=== PATIENT | male | born 1950 | race Caucasian/White ===

== ENCOUNTER 2018-01-10 04:45 | Inpatient (IN) | payer MEDICARE ==
[2018-01-10] VITALS (10 sets, daily range): BP systolic 124–162; BP diastolic 67–93; PULSE 87–122; RESP 17–24; TEMP 98.1–98.7; O2SAT 93–98
[~2018-01-10] VITALS: Ht 172.7 cm; Wt 120.8 kg
[2018-01-10] MEDS ORDERED: LISI2.5T3 PO (05:10)
[2018-01-10] MEDS ORDERED: HYDR5SYP10 PO (05:10)
[2018-01-10] MEDS ORDERED: CLAR10CA3 PO (05:10)
[2018-01-10] MEDS ORDERED: GUAI1TAB18 (05:10)
[2018-01-10] MEDS ORDERED: SODIUM CHLOR 0.9% 1000 ML INJ 1,000 ML IV ONE (05:15)
[2018-01-10] MEDS ORDERED: ACETAMINOPHEN 325 MG TAB PO ONE (05:15)
--- NOTE | 2018-01-10 05:18 | PD ---
HPI Chief Complaint: Fever Time Seen by Provider: 05:00 Travel History International Travel<30 days: No Contact w/Intl Traveler<30days: No Traveled to known affect area: No History of Present Illness HPI The patient is a 67-year-old male who presents to the emergency department via private vehicle for cough and cold symptoms that started on Tuesday. The patient developed a mostly dry nonproductive cough on Tuesday with subjective fevers and congestion. The patient was then seen in urgent care on Tuesday and placed on Levaquin. The patient has taken 2 doses of Levaquin, however, his symptoms have persisted. The patient states he checked his temperature earlier tonight and was 100.0, he was concerned about possible sepsis. The patient does have a history of sepsis 3 years ago in [place], [place]. The patient states that the cough is dry and nonproductive, does complain of right-sided chest wall pain secondary to coughing, denies significant shortness of breath. He denies any nausea, vomiting, diarrhea, or abdominal pain. He does complain of diffuse body aches. The patient states there is no x-ray performed and no influenza screen performed on Tuesday at the urgent care. Symptoms are moderate. Not alleviated with Levaquin. PFSH Past Medical History Arthritis: Yes Cardiac Catheterization: Yes Glaucoma: Yes Past Surgical History Abdominal Surgery: Yes Cholecystectomy: Yes Tonsillectomy: Yes (ADENOIDS ) Social History Alcohol Use: No Tobacco Use: No Substance Use: No Allergies-Medications (Allergen,Severity, Reaction): Coded Allergies: No Known Allergies (Unverified , 01/10/18) Reported Meds & Prescriptions Reported Meds & Active Scripts Active Reported Latanoprost Opth Drops (Latanoprost) 0.005% Drops 1 Drop EACH EYE HS Refrigerate until opened. Hydrocodone-Homatropine Liq 5-1.5 Mg/5 Ml Syrp 5 Ml PO Q6H PRN Lisinopril 2.5 Mg Tab 2.5 Mg PO DAILY Claritin (Loratadine) 10 Mg Cap 10 Mg PO DAILY Mucinex (Guaifenesin) 1,200 Mg Tab.er.12h Review of Systems Except as stated in HPI: all other systems reviewed are Neg General / Constitutional: Positive: Fever, Chills HENT: Positive: Sore Throat, Congestion, No: Headaches Cardiovascular: Positive: Chest Pain or Discomfort (Right-sided chest wall pain secondary to coughing) Respiratory: Positive: Cough, No: Shortness of Breath Gastrointestinal: No: Nausea, Vomiting, Diarrhea, Abdominal Pain Genitourinary: No: Dysuria Musculoskeletal: Positive: Myalgias Physical Exam Narrative GENERAL: Awake, alert, pleasant 67-year-old male who appears his stated age and is in no acute respiratory distress. SKIN: Focused skin assessment warm/dry. HEAD: Atraumatic. Normocephalic. EYES: Pupils equal and round. No scleral icterus. No injection or drainage. ENT: No nasal bleeding or discharge. Mild erythema but no exudate.. NECK: Trachea midline. No JVD. CARDIOVASCULAR: Regular, tachycardic with a heart rate of 115. RESPIRATORY: No accessory muscle use. C few scattered rhonchi right base. GASTROINTESTINAL: Abdomen soft, obese, no rebound tenderness. Stria noted. MUSCULOSKELETAL: No obvious deformities. No clubbing. No cyanosis. No edema. NEUROLOGICAL: Awake and alert. No obvious cranial nerve deficits. Motor grossly within normal limits. Normal speech. PSYCHIATRIC: Appropriate mood and affect; insight and judgment normal. Data Data Last Documented VS Vital Signs Date Time Temp Pulse Resp B/P (MAP) Pulse Ox O2 Delivery O2 Flow Rate FiO2 01/10/18 05:26 94 Nasal Cannula 2.00 01/10/18 05:25 113 24 159/86 (110) 01/10/18 04:52 98.2 Orders Orders Sepsis Workup Initiated (01/10/18 ) Electrocardiogram (01/10/18 05:08) Complete Blood Count With Diff (01/10/18 05:08) Comprehensive Metabolic Panel (01/10/18 05:08) Lactic Acid Sepsis Protocol (01/10/18 05:08) Ckmb (Isoenzyme) Profile (01/10/18 05:08) Troponin I (01/10/18 05:08) Urinalysis - C+S If Indicated (01/10/18 05:08) Influenzae A/B Antigen (01/10/18 05:08) Blood Culture (01/10/18 05:08) Chest, Single Ap (01/10/18 05:08) Blood Glucose (01/10/18 05:08) Ecg Monitoring (01/10/18 05:08) Iv Access Insert/Monitor (01/10/18 05:08) Oximetry (01/10/18 05:08) Oxygen Administration (01/10/18 05:08) Acetaminophen (Tylenol) (01/10/18 05:15) Sodium Chlor 0.9% 1000 Ml Inj (Ns 1000 M (01/10/18 05:15) Levofloxacin 500 Mg Premix Inj (Levaquin (01/10/18 06:15) Admit Order (Ed Use Only) (01/10/18 06:17) Labs Laboratory Tests Test 01/10/18 05:15 01/10/18 06:15 White Blood Count 13.5 TH/MM3 Red Blood Count 4.48 MIL/MM3 Hemoglobin 14.6 GM/DL Hematocrit 41.3 % Mean Corpuscular Volume 92.1 FL Mean Corpuscular Hemoglobin 32.6 PG Mean Corpuscular Hemoglobin Concent 35.4 % Red Cell Distribution Width 13.0 % Platelet Count 317 TH/MM3 Mean Platelet Volume 8.0 FL Neutrophils (%) (Auto) 86.4 % Lymphocytes (%) (Auto) 5.4 % Monocytes (%) (Auto) 6.6 % Eosinophils (%) (Auto) 1.1 % Basophils (%) (Auto) 0.5 % Neutrophils # (Auto) 11.7 TH/MM3 Lymphocytes # (Auto) 0.7 TH/MM3 Monocytes # (Auto) 0.9 TH/MM3 Eosinophils # (Auto) 0.1 TH/MM3 Basophils # (Auto) 0.1 TH/MM3 CBC Comment DIFF FINAL Differential Comment Blood Urea Nitrogen 15 MG/DL Creatinine 0.93 MG/DL Random Glucose 166 MG/DL Total Protein 7.1 GM/DL Albumin 3.4 GM/DL Calcium Level 8.3 MG/DL Alkaline Phosphatase 177 U/L Aspartate Amino Transf (AST/SGOT) 314 U/L Alanine Aminotransferase (ALT/SGPT) 173 U/L Total Bilirubin 0.6 MG/DL Sodium Level 138 MEQ/L Potassium Level 3.5 MEQ/L Chloride Level 106 MEQ/L Carbon Dioxide Level 21.7 MEQ/L Anion Gap 10 MEQ/L Estimat Glomerular Filtration Rate 82 ML/MIN Lactic Acid Level 2.2 mmol/L Total Creatine Kinase 67 U/L Troponin I 0.02 NG/ML Urine Color YELLOW Urine Turbidity CLEAR Urine pH 6.0 Urine Specific [place] 1.028 Urine Protein 30 mg/dL Urine Glucose (UA) NEG mg/dL Urine Ketones NEG mg/dL Urine Occult Blood NEG Urine Nitrite NEG Urine Bilirubin NEG Urine Urobilinogen LESS THAN 2.0 MG/DL Urine Leukocyte Esterase NEG Urine RBC LESS THAN 1 /hpf Urine WBC 1 /hpf Urine Mucus FEW /lpf Microscopic Urinalysis Comment CATH-CULT NOT IND MDM Medical Decision Making Medical Screen Exam Complete: Yes Emergency Medical Condition: Yes Medical Record Reviewed: Yes Interpretation(s) EKG reveals sinus tachycardia with a heart rate of 112. Date/Time Source Procedure Growth Status 01/10/18 05:15 Blood Peripheral Aerobic Blood Culture Pending Received 01/10/18 05:15 Blood Peripheral Anaerobic Blood Culture Pending Received 01/10/18 05:15 Blood Peripheral Aerobic Blood Culture Pending Received 01/10/18 05:15 Blood Peripheral Anaerobic Blood Culture Pending Received 01/10/18 05:15 Nasal Aspirate Influenza Types A,B Antigen (QUAN) - Final NEGATIVE FOR FLU A AND B ANTIGEN.... Complete Chest x-ray reveals bibasilar densities likely atelectasis. Differential Diagnosis Differential diagnosis includes sepsis, pneumonia, bronchitis, influenza, viral syndrome, UTI. Narrative Course IV was established, labs are drawn and sent, and the patient was placed on cardiac telemetry monitoring and continuous pulse oximetry monitoring. Chest x- ray was obtained. Blood culture and lactic acid were sent to lab. UA was sent to lab. The patient received 1 L of IV fluids and Tylenol 650 mg orally. Influenza screen was negative. Chest x-ray reveals bibasilar atelectasis. White count is elevated, heart rate is elevated, patient required oxygen to get an O2 sat greater than 93%. The patient may have viral syndrome or pneumonia not visualized on x-ray. He has been taking Levaquin for several days with no improvement of his symptoms. The patient does have a history of sepsis requiring prolonged hospitalization in the past, therefore, I believe it is reasonable to make the patient a 23 hour observation until blood cultures are negative and symptoms improved. The patient does not have a local primary physician, therefore, the on-call medical service was paged for 23 hour observation. Sepsis Criteria SIRS Criteria (2 or more): Heart rate over 90, RR > 20 or PaCO2 < 32, WBC > 28395, < 4000 or > 10% bands Criteria Outcome: Meets SIRS criteria Physician Communication Physician Communication [facility] were paged for 23 hour observation. I discussed the patient with Dr. Villalba who agrees with admission. Diagnosis Primary Impression: Febrile illness Additional Impressions: SIRS (systemic inflammatory response syndrome) Lactic acidosis Admitting Information Admitting Physician Requests: Observation Condition: Stable Nicanor Henson MD Jan 10, 2018 05:18
[2018-01-10 05:32] LABS: AUTOMATED NEUTROPHIL # 11.7 TH/MM3 (1.8-7.7); BASOPHIL # 0.1 TH/MM3 (0-0.2); BASOPHIL % 0.5 % (0.0-2.0); EOSINOPHIL # 0.1 TH/MM3 (0-0.4); EOSINOPHIL % 1.1 % (0.0-4.0); HEMATOCRIT 41.3 % (39.0-51.0); HEMOGLOBIN 14.6 GM/DL (13.0-17.0); LYMPH % 5.4 % (9.0-44.0); LYMPHOCYTE # 0.7 TH/MM3 (1.0-4.8); MEAN CELL VOLUME 92.1 FL (80.0-100.0); MEAN CORPUSCULAR HEMOGLOBIN 32.6 PG (27.0-34.0); MEAN CORPUSCULAR HGB CONC 35.4 % (32.0-36.0); MONO % 6.6 % (0.0-8.0); MONOCYTE # 0.9 TH/MM3 (0-0.9); NEUT % 86.4 % (16.0-70.0); PLATELET COUNT 317 TH/MM3 (150-450); RED BLOOD COUNT 4.48 MIL/MM3 (4.50-5.90); WHITE BLOOD COUNT 13.5 TH/MM3 (4.0-11.0)
[2018-01-10] MEDS ORDERED: LATA0.002 EACH EYE (05:35)
[2018-01-10 05:59] LABS: ALBUMIN 3.4 GM/DL (3.4-5.0); ALT (GPT) 173 U/L (12-78); AST (GOT) 314 U/L (15-37); BICARBONATE 21.7 MEQ/L (21.0-32.0); BLOOD UREA NITROGEN 15 MG/DL (7-18); CALCIUM 8.3 MG/DL (8.5-10.1); CHLORIDE 106 MEQ/L (98-107); CREATININE 0.93 MG/DL (0.60-1.30); GLOMERULAR FILTRATION RATE 82 ML/MIN (>89); GLUCOSE,RANDOM 166 MG/DL (74-106); SODIUM (NA) 138 MEQ/L (136-145)
[2018-01-10 06:03] LABS: ALKALINE PHOSPHATASE 177 U/L (45-117); TOTAL BILIRUBIN ADULT 0.6 MG/DL (0.2-1.0); TOTAL PROTEIN 7.1 GM/DL (6.4-8.2); TROPONIN I 0.02 NG/ML (0.02-0.05)
--- NOTE | 2018-01-10 06:03 | RADRPT ---
EXAM DATE/TIME: 01/10/2018 05:24 [facility] COMPARISON: No previous studies available for comparison. INDICATIONS : Short of breath. MEDICAL HISTORY : None. SURGICAL HISTORY : None. ENCOUNTER: Initial ACUITY: 1 day PAIN SCORE: 0/10 LOCATION: Bilateral chest FINDINGS: A single view of the chest demonstrates bibasilar densities. Slight elevation right hemidiaphragm. He art normal in size. Osseous structures are intact. CONCLUSION: Bibasilar densities likely atelectasis. Trent Houser MD on January 10, 2018 at 6:00 Board Certified Radiologist. This report was verified electronically.
[2018-01-10 06:08] LABS: LACTIC ACID SEPSIS PROTOCOL 2.2 mmol/L (0.4-2.0)
[2018-01-10] MEDS ORDERED: LEVOFLOXACIN 500 MG PREMIX INJ 100 ML IV ONE (06:15)
[2018-01-10] MEDS: SODIUM CHLOR 0.9% 1000 ML INJ 1,000 ML IV SCH ×3 (06:16→22:23)
[2018-01-10] MEDS ORDERED: BISACODYL 10 MG SUPP RECTAL PRN (06:30)
[2018-01-10] MEDS ORDERED: NALOXONE HCL 0.4 MG/ML AMP IV PUSH PRN (06:30)
[2018-01-10] MEDS ORDERED: SENNOSIDES 8.6 MG TAB PO PRN (06:30)
[2018-01-10] MEDS ORDERED: SODIUM CHLORIDE 0.9% FLUSH 10 ML FLUSH IV FLUSH PRN (06:30)
[2018-01-10] MEDS ORDERED: ACETAMINOPHEN 325 MG TAB PO PRN (06:30)
[2018-01-10] MEDS: HEPARIN SODIUM - SQ 10,000 UNITS/ML VIAL SQ SCH ×3 (06:30→20:03)
[2018-01-10] MEDS ORDERED: LACTULOSE SYRUP 20 GM/30 ML CUP PO PRN (06:30)
[2018-01-10] MEDS ORDERED: MAGNESIUM HYDROXIDE SUSP 30 ML CUP PO PRN (06:30)
[2018-01-10] MEDS ORDERED: ONDANSETRON HCL 4 MG/2 ML VIAL IVP PRN (06:30)
[2018-01-10 06:43] LABS: BILIRUBIN, URINE NEG (NEG); BLOOD, URINE NEG (NEG); GLUCOSE,URINE NEG (NEG); KETONE, URINE NEG (NEG); MUCUS URINE FEW /lpf (OCC); NITRITE,URINE NEG (NEG); URINE COLOR YELLOW (YELLW/STRAW); URINE LEUKOCYTE ESTERASE NEG (NEG)
[2018-01-10] MEDS ORDERED: PILL SPLITTER OTHER PRN (06:45)
[2018-01-10] MEDS: LISINOPRIL 5 MG TAB PO SCH (09:32)
[2018-01-10] MEDS: DOCUSATE SODIUM 50 MG/SENNA 8.6 MG TAB PO SCH ×2 (09:39→20:03)
[2018-01-10] MEDS: SODIUM CHLORIDE 0.9% FLUSH 10 ML FLUSH IV FLUSH SCH ×2 (09:40→20:03)
--- NOTE | 2018-01-10 10:18 | RADRPT ---
EXAM DATE/TIME: 01/10/2018 09:31 [facility] COMPARISON: No previous studies available for comparison. INDICATIONS : Increased lab values. Elevated LFTs. MEDICAL HISTORY : Arthritis. Glaucoma. SURGICAL HISTORY : Tonsillectomy. Cholecystectomy. Cardiac Cath. Adenoidectomy. ENCOUNTER: Initial ACUITY: 1 day PAIN SCORE: 1/10 LOCATION: Right upper quadrant Abdomen. MEASUREMENTS: LIVER: 20.0 cm length COMMON DUCT: Non-visualized RIGHT KIDNEY: 11.5 x 5.5 x 5.0 cm SPLEEN: 12.4 cm length FINDINGS: LIVER: Mildly heterogeneous increased echogenicity which may be steatosis. COMMON DUCT: Not seen GALLBLADDER: Surgically absent PANCREAS: Nonvisualized RIGHT KIDNEY: Areas of cortical thinning and loss involving mid and lower pole region. This may be developmental or related to prior insults of some kind. No evidence of hydronephrosis. SPLEEN: No focal lesion. CONCLUSION: Heterogeneous mild probable hepatic steatosis. Santy Baer MD on January 10, 2018 at 10:12 Board Certified Radiologist. This report was verified electronically.
--- NOTE | 2018-01-10 14:37 | EKG ---
Date Performed: 01/10/2018 Time Performed: 05:09:15 PTAGE: 67 years EKG: SINUS TACHYCARDIA VOLTAGE CRITERIA FOR LVH ABNORMAL ECG NO PREVIOUS TRACING DOCTOR: Homar Zurita Interpretating Date/Time 01/10/2018 14:33:55
--- NOTE | 2018-01-10 16:11 | HHI.HP ---
HPI Service [facility] Hospitalists Primary Care Physician Non-Staff Admission Diagnosis Febrile illness, sirs, lactic acidosis, probable pneumonia Diagnoses: Chief Complaint: Cough with sputum production Fatigue RUQ pain Travel History International Travel<30 Days: No Contact w/Intl Traveler <30 Da: No Traveled to Known Affected Are: No Sepsis Criteria SIRS Criteria (2 or more): Heart rate over 90, RR > 20 or PaCO2 < 32, WBC > 69509, < 4000 or > 10% bands Sepsis Criteria (SIRS+source): Infect source susp/known Severe Sepsis (+one): Organ Dysfunction, Lactate >2 Criteria Outcome: Meets severe sepsis criteria History of Present Illness Written by Marge Klein, acting as scribe for Dr. Medrano on 01/10/18 at 15: 52. This is a 67-year-old male with past medical history significant for hypertension, bariatric surgery, glaucoma and history of septic shock secondary to pneumonia that occurred 2 years ago who presents to [facility] ED with complaints cough with yellowish/greenish sputum production, diffuse muscle aches and pain, low grade fever, increased fatigue and right upper quadrant pain ongoing since Tuesday. Patient states his temperature at the house was 99 . Patient states he recently moved to the area from [place] and has been doing a lot of heavy lifting, moving and packing boxes. He states on Tuesday when he began to develop symptoms he started taking Mucinex. He describes a sensation of "lungs closing up". He continued to feel badly and on Tuesday he contacted his previous physician in [place] and was called in Levaquin of which he has taken 2 days of. He also went to see an urgent care on Tuesday which prescribed Levaquin which he did not fill. He denies any complaints of chest pain. He denies any nausea or vomiting. He does endorse significant right upper quadrant pain that has been ongoing since Tuesday and he states is exacerbated by cough. He denies any complaints of dysuria, hematuria , diarrhea, hematochezia or melena. He takes Motrin for osteoarthritic pain but denies taking any Tylenol. Patient states he has been off and on antibiotics every few weeks for the past several years. He states he has been told that he might have asthma. Review of Systems Except as stated in HPI: all other systems reviewed are Neg Past Family Social History Past Medical History Hypertension Glaucoma Hx of septic shock with PNA 2 yrs ago Past Surgical History Cholecystectomy Gastric bypass surgery with gastric sleeve surgery prior to that Tonsillectomy Reported Medications Latanoprost Opth Drops (Latanoprost) 0.005% Drops 1 Drop EACH EYE HS Refrigerate until opened. Hydrocodone-Homatropine Liq 5-1.5 Mg/5 Ml Syrp 5 Ml PO Q6H PRN Lisinopril 2.5 Mg Tab 2.5 Mg PO DAILY Claritin (Loratadine) 10 Mg Cap 10 Mg PO DAILY Mucinex (Guaifenesin) 1,200 Mg Tab.er.12h Allergies: Coded Allergies: No Known Allergies (Unverified , 01/10/18) Active Ordered Medications Current Medications Medications (Trade) Dose Ordered Sig/Parker Route Start Time Stop Time Status Last Admin Sodium Chloride 1,000 ml @ 125 mls/hr Q8H IV 01/10/18 06:16 01/10/18 14:11 (NS Flush) 2 ml UNSCH PRN IV FLUSH 01/10/18 06:30 (NS Flush) 2 ml BID IV FLUSH 01/10/18 09:00 01/10/18 09:40 (Tylenol) 650 mg Q4H PRN PO 01/10/18 06:30 (Zofran Inj) 4 mg Q6H PRN IVP 01/10/18 06:30 (Heparin Inj) 5,000 units Q8HR SQ 01/10/18 06:30 01/10/18 14:07 (Narcan Inj) 0.4 mg UNSCH PRN IV PUSH 01/10/18 06:30 (Ann-Colace) 1 tab BID PO 01/10/18 09:00 01/10/18 09:39 (Milk Of Magnesia Liq) 30 ml Q12H PRN PO 01/10/18 06:30 (Senokot) 17.2 mg Q12H PRN PO 01/10/18 06:30 (Dulcolax Supp) 10 mg DAILY PRN RECTAL 01/10/18 06:30 (Lactulose Liq) 30 ml DAILY PRN PO 01/10/18 06:30 (Duoneb Neb) 1 ampule Q4HR NEB PRN NEB 01/10/18 06:30 Levofloxacin/ Dextrose 100 ml @ 100 mls/hr Q24H IV 01/11/18 06:00 (Xalatan 0.005% Opth Soln) 1 drop HS EACH EYE 01/10/18 21:00 (Prinivil) 2.5 mg DAILY PO 01/10/18 09:00 01/10/18 09:32 (Pill Splitter) 1 ea UNSCH PRN OTHER 01/10/18 06:45 Family History Father, age 70, vascular disease Mother, , cancer Social History Patient denies any tobacco use. He reports rare alcohol consumption but does state that he drank more than he normally does during bike week which consisted of 2 beers a day over the course of 3 days. He denies any illicit drug use. Physical Exam Vital Signs Vital Signs Date Time Temp Pulse Resp B/P (MAP) Pulse Ox O2 Delivery O2 Flow Rate FiO2 01/10/18 14:00 98.1 87 19 134/70 (91) 98 01/10/18 13:06 87 17 132/72 (92) 95 Room Air 01/10/18 10:38 100 18 124/74 (91) 93 Room Air 01/10/18 07:13 94 17 132/67 (88) 94 Nasal Cannula 2.00 01/10/18 06:49 98.7 89 24 132/67 (88) 94 Nasal Cannula 2.00 01/10/18 06:24 95 Nasal Cannula 2.00 01/10/18 05:26 94 Nasal Cannula 2.00 01/10/18 05:25 113 24 159/86 (110) 93 Nasal Cannula 2.00 01/10/18 04:52 98.2 122 22 162/93 (116) 94 Physical Exam GENERAL: This is a well-nourished, well-developed obese male patient, in no apparent distress. Awake and alert. SKIN: No rashes, ecchymoses or lesions. Cool and dry. HEAD: Atraumatic. Normocephalic. No temporal or scalp tenderness. EYES: Pupils equal round and reactive. Extraocular motions intact. No scleral icterus. No injection or drainage. ENT: Nose without bleeding or purulent drainage. Throat without erythema, tonsillar hypertrophy or exudate. Uvula midline. Airway patent. NECK: Trachea midline. No lymphadenopathy. Supple, nontender, no meningeal signs. CARDIOVASCULAR: Regular rate and rhythm without murmurs, gallops, or rubs. RESPIRATORY: Clear to auscultation. Breath sounds equal bilaterally. No wheezes , rales, or rhonchi. GASTROINTESTINAL: Abdomen soft, non-tender, nondistended. No hepato-splenomegaly , or palpable masses. No guarding. MUSCULOSKELETAL: Extremities without clubbing, cyanosis, or edema. No joint tenderness, effusion, or edema noted. No calf tenderness. NEUROLOGICAL: Awake and alert. Cranial nerves II through XII intact. Motor and sensory grossly within normal limits. Five out of 5 muscle strength in all muscle groups. Normal speech. Laboratory Laboratory Tests Test 01/10/18 05:15 01/10/18 06:15 01/10/18 10:10 01/10/18 10:14 White Blood Count 13.5 Red Blood Count 4.48 Hemoglobin 14.6 Hematocrit 41.3 Mean Corpuscular Volume 92.1 Mean Corpuscular Hemoglobin 32.6 Mean Corpuscular Hemoglobin Concent 35.4 Red Cell Distribution Width 13.0 Platelet Count 317 Mean Platelet Volume 8.0 Neutrophils (%) (Auto) 86.4 Lymphocytes (%) (Auto) 5.4 Monocytes (%) (Auto) 6.6 Eosinophils (%) (Auto) 1.1 Basophils (%) (Auto) 0.5 Neutrophils # (Auto) 11.7 Lymphocytes # (Auto) 0.7 Monocytes # (Auto) 0.9 Eosinophils # (Auto) 0.1 Basophils # (Auto) 0.1 CBC Comment DIFF FINAL Differential Comment Blood Urea Nitrogen 15 Creatinine 0.93 Random Glucose 166 Total Protein 7.1 Albumin 3.4 Calcium Level 8.3 Alkaline Phosphatase 177 Aspartate Amino Transf (AST/SGOT) 314 Alanine Aminotransferase (ALT/SGPT) 173 Total Bilirubin 0.6 Sodium Level 138 Potassium Level 3.5 Chloride Level 106 Carbon Dioxide Level 21.7 Anion Gap 10 Estimat Glomerular Filtration Rate 82 Lactic Acid Level 2.2 1.7 Total Creatine Kinase 67 Troponin I 0.02 Urine Color YELLOW Urine Turbidity CLEAR Urine pH 6.0 Urine Specific [place] 1.028 Urine Protein 30 Urine Glucose (UA) NEG Urine Ketones NEG Urine Occult Blood NEG Urine Nitrite NEG Urine Bilirubin NEG Urine Urobilinogen LESS THAN 2.0 Urine Leukocyte Esterase NEG Urine RBC LESS THAN 1 Urine WBC 1 Urine Mucus FEW Microscopic Urinalysis Comment CATH-CULT NOT IND Hepatitis A IgM Antibody NONREACTIVE Hepatitis B Surface Antigen NONREACTIVE Hepatitis B Core IgM Antibody NONREACTIVE Hepatitis C IgG Antibody NONREACTIVE Date/Time Source Procedure Growth Status 01/10/18 05:15 Blood Peripheral Aerobic Blood Culture Pending Received 01/10/18 05:15 Blood Peripheral Anaerobic Blood Culture Pending Received 01/10/18 05:15 Nasal Aspirate Influenza Types A,B Antigen (QUAN) - Final NEGATIVE FOR FLU A AND B ANTIGEN.... Complete Result Diagram: 01/10/18 0515 01/10/18 0515 Imaging Last Impressions Chest X-Ray 01/10/18 0508 Signed Impressions: Service Date/Time: Wednesday, January 10, 2018 05:24 - CONCLUSION: Bibasilar densities likely atelectasis. Trent Houser MD Liver Ultrasound 01/10/18 0000 Signed Impressions: Service Date/Time: Wednesday, January 10, 2018 09:31 - CONCLUSION: Heterogeneous mild probable hepatic steatosis. Santy Baer MD [place] VTE Risk Assessment Caprini VTE Risk Assessment: Mod/High Risk (score >= 2) Caprini Risk Assessment Model Point Value = 1 Point Value = 2 Point Value = 3 Point Value = 5 Age 41-60 Minor surgery BMI > 25 kg/m2 Swollen legs Varicose veins or History of unexplained or recurrent spontaneous Oral contraceptives or hormone replacement Sepsis (< 1 month) Serious lung disease, including pneumonia (< 1 month) Abnormal pulmonary function Acute myocardial infarction Congestive heart failure (< 1 month) History of inflammatory bowel disease Medical patient at bed rest Age 61-74 Arthroscopic surgery Major open surgery (> 45 min) Laparoscopic surgery (> 45 min) Malignancy Confined to bed (> 72 hours) Immobilizing plaster cast Central venous access Age >= 75 History of VTE Family history of VTE Factor V Leiden Prothrombin [id number] Lupus anticoagulant Anticardiolipin antibodies Elevated serum homocysteine Heparin-induced thrombocytopenia Other congenital or acquired thrombophilia Stroke (< 1 month) Elective arthroplasty Hip, pelvis, or leg fracture Acute spinal cord injury (< 1 month) Prophylaxis Regimen Total Risk Factor Score Risk Level Prophylaxis Regimen 0-1 Low Early ambulation 2 Moderate Order ONE of the following: *Sequential Compression Device (SCD) *Heparin 5000 units SQ BID 3-4 Higher Order ONE of the following medications: *Heparin 5000 units SQ TID *Enoxaparin/Lovenox 40 mg SQ daily (WT < 150 kg, CrCl > 30 mL/min) *Enoxaparin/Lovenox 30 mg SQ daily (WT < 150 kg, CrCl > 10-29 mL/min) *Enoxaparin/Lovenox 30 mg SQ BID (WT < 150 kg, CrCl > 30 mL/min) AND/OR *Sequential Compression Device (SCD) 5 or more Highest Order ONE of the following medications: *Heparin 5000 units SQ TID (Preferred with Epidurals) *Enoxaparin/Lovenox 40 mg SQ daily (WT < 150 kg, CrCl > 30 mL/min) *Enoxaparin/Lovenox 30 mg SQ daily (WT < 150 kg, CrCl > 10-29 mL/min) *Enoxaparin/Lovenox 30 mg SQ BID (WT < 150 kg, CrCl > 30 mL/min) AND *Sequential Compression Device (SCD) Assessment and Plan Assessment and Plan 67-year-old male with past medical history significant for hypertension, bariatric surgery, glaucoma and history of septic shock secondary to pneumonia that occurred 2 years ago who presents to [facility] ED with complaints cough with yellowish/greenish sputum production, diffuse muscle aches and pain, low grade fever, increased fatigue and right upper quadrant pain ongoing since Tuesday. //Patient meets severe sepsis criteria with elevated white count of 13.5, HR 100 , RR 94, lactic acid 2.2 and source of pneumonia -IV Levaquin -CXR shows bibasilar densities, images reviewed by me -UA unremarkable -negative for flu antigen -repeat lactic acid -follow up on blood culture results -monitor white count -continuous cardiac monitoring -supplemental oxygen as needed to maintain O2 sats>92% -Duonebs -Mucinex -IS and acapella //Transaminitis //Right upper quadrant pain -obtain liver US -obtain hepatitis profile -Consult GI, appreciate assistance -Avoid hepatotoxic agents -Trend LFTs //Hypertension, chronic, controlled -Resume patient on home dose of lisinopril 2.5 mg daily -Continue to monitor BP and adjust treatment accordingly //Glaucoma -Resume home eyedrops //Hyperglycemia -No reported history of diabetes per patient -BS 166 -obtain [id number] //Hx of bariatric surgery -continue on Thiamine //DVT prophylaxis -bilateral SCD/DORITA hose Discussed Condition With patient, nursing staff Physician Certification 2 Midnight Certification Type: Admission for Inpatient Services Order for Inpatient Services The services are ordered in accordance with Medicare regulations or non- Medicare payer requirements, as applicable. In the case of services not specified as inpatient-only, they are appropriately provided as inpatient services in accordance with the 2-midnight benchmark. Estimated LOS (days): 2 2 days is the estimated time the patient will need to remain in the hospital, assuming treatment plan goals are met and no additional complications. Post-Hospital Plan: Not yet determined Notes: This note was transcribed by stephan Klein. I, Dr. Wolf Medrano personally performed the history, physical exam, and medical decision making; and confirmed the accuracy of the information in the transcribed note. Authenticated by Dr. Wolf Medrano on 01/12/18 at 07:44. Marge Klein Jan 10, 2018 16:11 Wolf Medrano MD Jan 12, 2018 07:44
--- NOTE | 2018-01-10 17:21 | PD.CONS ---
HPI History of Present Illness This is a 67 year old with PMH significant for HTN, gastric bypass, and glaucoma who denies any other significant medical problems. States had recent labs done by his PCP in [facility] and was told everything came back normal including negative for diabetes and hyperlipidemia. Pt does reports multiple respiratory illnesses, states he gets sick every couple weeks and ends up on antibiotics. Pt recently seen at an urgent care and started on Levaquin and Codeine cough syrup. Pt presented to the ER yesterday with complaints of persistent productive cough, muscle aches, fatigue, and low grade fevers. Pt also complaining of RUQ pain, states he had this same pain a month ago when he was coughing, pain was worse with coughing and movement but resolved on its own. He currently describes the pain the same way and states it feels like he has a pulled muscle. Denies any associated acid reflux, heartburn, nausea, vomiting, changes in bowel movement, weight loss. Denies history of liver issues. States he does not really drink alcohol but did have 3-4 beers a day for four days in a row during bike week. Has been taking OTC Mucinex, states a lot of it for his cough. Also was taking Claritin but stopped this last week. Denies Tylenol use, smoking, illicit drug use. Denies history of IV drug use. Last EGD was around 20 years ago and he states normal exam. Last colonoscopy in November showed 1 polyp, history of precancerous polyps. (Erinn Birmingham) PFSH Past Medical History Hypertension Glaucoma Hx of septic shock with PNA 2 yrs ago Past Surgical History Cholecystectomy Gastric bypass surgery with gastric sleeve surgery prior to that Tonsillectomy (Erinn Birmingham) Coded Allergies: No Known Allergies (Unverified , 01/10/18) Family History Father, age 70, vascular disease Mother, , cancer Social History Patient denies any tobacco use. He reports rare alcohol consumption but does state that he drank more than he normally does during bike week which consisted of 2 beers a day over the course of 3 days. He denies any illicit drug use. (Erinn Birmingham) Review of Systems Gastrointestinal: COMPLAINS OF: Abdominal pain, DENIES: Black stools, Bloody stools, Constipation, Diarrhea, Nausea, Vomiting, Difficulty Swallowing, Anorexia, Odynophagia, Swelling of Abdomen, Heartburn, Hematemesis (Erinn Birmingham GLACIOLOGIST) GI Exam Vitals I&O Vital Signs Date Time Temp Pulse Resp B/P (MAP) Pulse Ox O2 Delivery O2 Flow Rate FiO2 01/10/18 14:00 98.1 87 19 134/70 (91) 98 01/10/18 13:06 87 17 132/72 (92) 95 Room Air 01/10/18 10:38 100 18 124/74 (91) 93 Room Air 01/10/18 07:13 94 17 132/67 (88) 94 Nasal Cannula 2.00 01/10/18 06:49 98.7 89 24 132/67 (88) 94 Nasal Cannula 2.00 01/10/18 06:24 95 Nasal Cannula 2.00 01/10/18 05:26 94 Nasal Cannula 2.00 01/10/18 05:25 113 24 159/86 (110) 93 Nasal Cannula 2.00 01/10/18 04:52 98.2 122 22 162/93 (116) 94 I/O 01/09/18 01/09/18 01/09/18 01/10/18 01/10/18 01/10/18 07:00 15:00 23:00 07:00 15:00 23:00 Intake Total 1000 ml 100 ml Balance 1000 ml 100 ml Intake IV Total 1000 ml 100 ml Imaging Last Impressions Chest X-Ray 01/10/18 0508 Signed Impressions: Service Date/Time: Wednesday, January 10, 2018 05:24 - CONCLUSION: Bibasilar densities likely atelectasis. Trent Houser MD Liver Ultrasound 01/10/18 0000 Signed Impressions: Service Date/Time: Wednesday, January 10, 2018 09:31 - CONCLUSION: Heterogeneous mild probable hepatic steatosis. Santy Baer MD Laboratory Test 01/10/18 05:15 01/10/18 06:15 01/10/18 10:10 01/10/18 10:14 White Blood Count 13.5 TH/MM3 Red Blood Count 4.48 MIL/MM3 Hemoglobin 14.6 GM/DL Hematocrit 41.3 % Mean Corpuscular Volume 92.1 FL Mean Corpuscular Hemoglobin 32.6 PG Mean Corpuscular Hemoglobin Concent 35.4 % Red Cell Distribution Width 13.0 % Platelet Count 317 TH/MM3 Mean Platelet Volume 8.0 FL Neutrophils (%) (Auto) 86.4 % Lymphocytes (%) (Auto) 5.4 % Monocytes (%) (Auto) 6.6 % Eosinophils (%) (Auto) 1.1 % Basophils (%) (Auto) 0.5 % Neutrophils # (Auto) 11.7 TH/MM3 Lymphocytes # (Auto) 0.7 TH/MM3 Monocytes # (Auto) 0.9 TH/MM3 Eosinophils # (Auto) 0.1 TH/MM3 Basophils # (Auto) 0.1 TH/MM3 CBC Comment DIFF FINAL Differential Comment Blood Urea Nitrogen 15 MG/DL Creatinine 0.93 MG/DL Random Glucose 166 MG/DL Total Protein 7.1 GM/DL Albumin 3.4 GM/DL Calcium Level 8.3 MG/DL Alkaline Phosphatase 177 U/L Aspartate Amino Transf (AST/SGOT) 314 U/L Alanine Aminotransferase (ALT/SGPT) 173 U/L Total Bilirubin 0.6 MG/DL Sodium Level 138 MEQ/L Potassium Level 3.5 MEQ/L Chloride Level 106 MEQ/L Carbon Dioxide Level 21.7 MEQ/L Anion Gap 10 MEQ/L Estimat Glomerular Filtration Rate 82 ML/MIN Lactic Acid Level 2.2 mmol/L 1.7 mmol/L Total Creatine Kinase 67 U/L Troponin I 0.02 NG/ML Urine Color YELLOW Urine Turbidity CLEAR Urine pH 6.0 Urine Specific Marble 1.028 Urine Protein 30 mg/dL Urine Glucose (UA) NEG mg/dL Urine Ketones NEG mg/dL Urine Occult Blood NEG Urine Nitrite NEG Urine Bilirubin NEG Urine Urobilinogen LESS THAN 2.0 MG/DL Urine Leukocyte Esterase NEG Urine RBC LESS THAN 1 /hpf Urine WBC 1 /hpf Urine Mucus FEW /lpf Microscopic Urinalysis Comment CATH-CULT NOT IND Hepatitis A IgM Antibody NONREACTIVE Hepatitis B Surface Antigen NONREACTIVE Hepatitis B Core IgM Antibody NONREACTIVE Hepatitis C IgG Antibody NONREACTIVE Date/Time Source Procedure Growth Status 01/10/18 05:15 Blood Peripheral Aerobic Blood Culture Pending Received 01/10/18 05:15 Blood Peripheral Anaerobic Blood Culture Pending Received 01/10/18 05:15 Nasal Aspirate Influenza Types A,B Antigen (QUAN) - Final NEGATIVE FOR FLU A AND B ANTIGEN.... Complete Physical Examination HEENT: Normocephalic; atraumatic CHEST: Diffuse crackles CARDIAC: RRR ABDOMEN: Distended, soft, tender to deep palpation under right ribcage, bowel sounds active EXTREMITIES: No clubbing, cyanosis, or edema. SKIN: Normal; no rash; no jaundice. SUPERVISOR BEEHIVE KILN: No focal deficits; alert and oriented times three. (Erinn Birmingham) Assessment and Plan Plan Assessment: - Elevated LFTs- Currently AST-314 ALT-173 Alk phos-177 T bili-0.6 Pt denies history of liver issues. States recent labs by PCP were normal, denies hyperlipidemia and DM States rare ETOH but did have 3-4 beers a day for four days in a row during bike week. Denies history of IV drug use. New medications include: Hydrocodone-Homatropine, Levaquin OTC Mucinex. Denies any Tylenol use or OTC herbs and supplements. Liver US --> Heterogeneous mild probable hepatic steatosis Hepatitis panel negative Family history negative for liver issues Denies acid reflux, heartburn, dysphagia, odynophagia, weight loss. Complaining of RUQ abdominal pain, worse with coughing and movement, states feels like a pulled muscle. - History of gastric bypass with previous cholecystectomy done 5-6 years ago - Pneumonia- Levaquin - Leukocytosis, elevated lactic acid, hx of septic shock Plan: Unclear cause for elevated LFTs ?medication vs ?autoimmune (Pt states he is sick every few weeks requiring abx) Will order liver SHERMAN Monitor LFTs Avoid hepatotoxins Further recommendations based on findings of above Pt has been seen and examined by myself and Dr. Kimbrough and this note is written on his behalf (Erinn Birmingham) Physician Comments Patient seen and examined Agree with above Continue with current supportive care Monitor labs Most likely cause is related to antibiotic use and certainly Levaquin is the potential culprit Would recommend changing Levaquin we will defer to attending physician Liver workup in progress (Espinoza Kimbrough MD) Erinn Birmingham Jan 10, 2018 17:21 Espinoza Kimbrough MD Jan 10, 2018 21:49
[2018-01-10] MEDS: BENZONATATE 100 MG CAP PO PRN (20:02)
[2018-01-10] MEDS: FAMOTIDINE 20 MG TAB PO SCH (20:03)
[2018-01-10] MEDS: IBUPROFEN 600 MG TAB PO PRN (20:03)
[2018-01-10] MEDS: guaiFENesin E.R. 600 MG TAB PO SCH (20:03)
[2018-01-10] MEDS: LATANOPROST 0.005% OPHT SOLN 2.5 ML BTL EACH EYE SCH (22:22)
[2018-01-10] MEDS ORDERED: COMB0.2S LEFT EYE (22:33)
[2018-01-10] MEDS ORDERED: LATA0.002 RIGHT EYE (22:33)
[2018-01-10 22:41] LABS: % SATURATION IRON PROFILE 11.2 % (20-50); IRON (FE) 45 MCG/DL (65-175); TOTAL IRON BINDING CAPACITY 402 MCG/DL (250-450)
[2018-01-10 22:44] LABS: FERRITIN 264 NG/ML (26-388)
[2018-01-10] MEDS ORDERED: PROCHLORPERAZINE INJ 10 MG/2 ML VIAL IV PUSH PRN (23:15)
[2018-01-10] MEDS ORDERED: LORazepam 0.5 MG TAB PO PRN (23:15)
[2018-01-10] MEDS: cefTRIAXone INJ 1,000 MG in SODIUM CHLORIDE 0.9% INJ 100 ML IV SCH (23:57)
[2018-01-11] VITALS: BP 130/60; PULSE 92; RESP 18; TEMP 97.9; O2SAT 95
[2018-01-11] MEDS: AZITHROMYCIN INJ 500 MG in SODIUM CHLOR 0.9% 250 ML INJ 250 ML IV SCH ×2 (01:51→23:53)
[2018-01-11] MEDS ORDERED: LEVOFLOXACIN 500 MG PREMIX INJ 100 ML IV SCH (06:00)
[2018-01-11] MEDS: HEPARIN SODIUM - SQ 10,000 UNITS/ML VIAL SQ SCH ×3 (06:00→21:08)
[2018-01-11] MEDS: BENZONATATE 100 MG CAP PO PRN ×3 (06:24→21:00)
[2018-01-11] MEDS: IBUPROFEN 600 MG TAB PO PRN ×2 (06:24→17:13)
[2018-01-11 08:00] VITALS: BP 126/64; PULSE 87; RESP 18; TEMP 97.4; O2SAT 93; O2SAT 96
[2018-01-11] MEDS: guaiFENesin E.R. 600 MG TAB PO SCH ×2 (08:40→21:00)
[2018-01-11] MEDS: THIAMINE HCL 100 MG TAB PO SCH (08:40)
[2018-01-11] MEDS: FAMOTIDINE 20 MG TAB PO SCH ×2 (08:40→21:00)
[2018-01-11] MEDS: DOCUSATE SODIUM 50 MG/SENNA 8.6 MG TAB PO SCH ×2 (08:40→21:00)
[2018-01-11] MEDS: LORATADINE 10 MG TAB PO SCH (08:40)
[2018-01-11] MEDS: LISINOPRIL 5 MG TAB PO SCH (08:40)
[2018-01-11] MEDS: SODIUM CHLORIDE 0.9% FLUSH 10 ML FLUSH IV FLUSH SCH ×2 (08:42→21:07)
[2018-01-11 11:10] LABS: AUTOMATED NEUTROPHIL # 5.7 TH/MM3 (1.8-7.7); BASOPHIL % 0.6 % (0.0-2.0); EOSINOPHIL # 0.2 TH/MM3 (0-0.4); EOSINOPHIL % 2.2 % (0.0-4.0); HEMATOCRIT 39.4 % (39.0-51.0); HEMOGLOBIN 13.4 GM/DL (13.0-17.0); LYMPH % 13.2 % (9.0-44.0); MEAN CELL VOLUME 93.6 FL (80.0-100.0); MEAN CORPUSCULAR HEMOGLOBIN 31.8 PG (27.0-34.0); MEAN PLATELET VOLUME 8.1 FL (7.0-11.0); MONO % 9.4 % (0.0-8.0); MONOCYTE # 0.7 TH/MM3 (0-0.9); NEUT % 74.6 % (16.0-70.0); PLATELET COUNT 283 TH/MM3 (150-450); RED BLOOD COUNT 4.21 MIL/MM3 (4.50-5.90); RED CELL DISTRIBUTION WIDTH 13.3 % (11.6-17.2); WHITE BLOOD COUNT 7.7 TH/MM3 (4.0-11.0)
[2018-01-11 11:57] LABS: ALBUMIN 3.3 GM/DL (3.4-5.0); AST (GOT) 52 U/L (15-37); BICARBONATE 25.7 MEQ/L (21.0-32.0); BLOOD UREA NITROGEN 10 MG/DL (7-18); CALCIUM 8.3 MG/DL (8.5-10.1); CHLORIDE 110 MEQ/L (98-107); CREATININE 0.68 MG/DL (0.60-1.30); GLOMERULAR FILTRATION RATE 117 ML/MIN (>89); GLUCOSE,RANDOM 128 MG/DL (74-106); SODIUM (NA) 142 MEQ/L (136-145)
[2018-01-11 11:58] LABS: DIRECT BILIRUBIN ADULT 0.1 MG/DL (0.0-0.2)
[2018-01-11 12:00] VITALS: BP 123/60; PULSE 109; RESP 18; TEMP 97.5; O2SAT 92
[2018-01-11 12:01] LABS: ALKALINE PHOSPHATASE 138 U/L (45-117); ALT (GPT) 99 U/L (12-78); TOTAL BILIRUBIN ADULT 0.4 MG/DL (0.2-1.0); TOTAL PROTEIN 7.2 GM/DL (6.4-8.2)
--- NOTE | 2018-01-11 12:33 | HHI.PR ---
Subjective Remarks Nursing denies any deterioration since last night. However the patient did refuse his MRCP this morning. He says that he gets very short of breath and starts coughing a lot when he lies down flat. He thinks that it is better now and thinks he will be able to do this imaging test either later this evening or in the morning. He denies having any diagnosis of heart failure he was willing to undergo repeat echocardiogram. Denies any nausea vomiting this morning. Objective Vital Signs Date Time Temp Pulse Resp B/P (MAP) Pulse Ox O2 Delivery O2 Flow Rate FiO2 01/11/18 12:00 97.5 109 18 123/60 (81) 92 01/11/18 08:00 96 01/11/18 08:00 97.4 87 18 126/64 (84) 93 01/11/18 00:00 97.9 92 18 130/60 (83) 95 01/10/18 20:00 98.7 101 18 139/67 (91) 93 01/10/18 16:00 98.5 96 17 137/68 (91) 97 01/10/18 14:00 98.1 87 19 134/70 (91) 98 01/10/18 13:06 87 17 132/72 (92) 95 Room Air I/O 01/10/18 01/10/18 01/10/18 01/11/18 01/11/18 01/11/18 07:00 15:00 23:00 07:00 15:00 23:00 Intake Total 1000 ml 100 ml 1387 ml 975 ml Output Total 825 ml Balance 1000 ml 100 ml 562 ml 975 ml Intake Oral 600 ml 0 ml IV Total 1000 ml 100 ml 787 ml 975 ml Output Urine Total 825 ml # Voids 3 # Bowel Movements 0 0 Result Diagram: 01/11/18 1028 01/11/18 1028 Objective Remarks No abdominal tenderness palpation, abdomen is otherwise obese, soft, nondistended Lungs are clear bilaterally, no lower extremity edema is noted A/P Assessment and Plan 67-year-old male with past medical history significant for hypertension, bariatric surgery, glaucoma and history of septic shock secondary to pneumonia that occurred 2 years ago who presents to [facility] ED with complaints cough with yellowish/greenish sputum production, diffuse muscle aches and pain, low grade fever, increased fatigue and right upper quadrant pain ongoing since Tuesday. Sepsis secondary to pneumonia -Treat pneumonia, monitor IV fluids, leukocytosis resolved Pneumonia -Continue Rocephin and azithromycin as opposed to Levaquin to help minimize transaminitis as a possible side effect from the -Duonebs -Mucinex -IS and acapella orthopnea - ordering echo, possibly 2/2 PNA; no objective signs of any CHF evident //Transaminitis -continue IVF, improving per CMP this morning //Right upper quadrant pain -GI following, viral hepatitis panel is neg, autoimmune panel is still pending, can consider reattempting MRCP in next 12-24 hours. will order echo to elucidate orthopnea //Hypertension, chronic, controlled -lisinopril //Glaucoma -home eyedrops //Hyperglycemia -No reported history of diabetes per patient -BS 166 -a1c pending //Hx of bariatric surgery -continue on Thiamine //DVT prophylaxis -bilateral SCD/ODRITA Sukh Barrios MD Jan 11, 2018 12:33
--- NOTE | 2018-01-11 13:54 | HHI.GIFU ---
Subjective Remarks Sitting up in the bed talking on the phone Very conversational Still has mild right upper quadrant Stable at 13.4 Refused MRCP this morning concerned with claustrophobia and not being able to eat this morning (La Marroquin) Objective Vitals I&O Vital Signs Date Time Temp Pulse Resp B/P (MAP) Pulse Ox O2 Delivery O2 Flow Rate FiO2 01/11/18 12:00 97.5 109 18 123/60 (81) 92 01/11/18 08:00 96 01/11/18 08:00 97.4 87 18 126/64 (84) 93 01/11/18 00:00 97.9 92 18 130/60 (83) 95 01/10/18 20:00 98.7 101 18 139/67 (91) 93 01/10/18 16:00 98.5 96 17 137/68 (91) 97 01/10/18 14:00 98.1 87 19 134/70 (91) 98 I/O 01/10/18 01/10/18 01/10/18 01/11/18 01/11/18 01/11/18 07:00 15:00 23:00 07:00 15:00 23:00 Intake Total 1000 ml 100 ml 1387 ml 975 ml Output Total 825 ml Balance 1000 ml 100 ml 562 ml 975 ml Intake Oral 600 ml 0 ml IV Total 1000 ml 100 ml 787 ml 975 ml Output Urine Total 825 ml # Voids 3 # Bowel Movements 0 0 Laboratory Laboratory Tests Test 01/11/18 10:28 White Blood Count 7.7 Red Blood Count 4.21 Hemoglobin 13.4 Hematocrit 39.4 Mean Corpuscular Volume 93.6 Mean Corpuscular Hemoglobin 31.8 Mean Corpuscular Hemoglobin Concent 34.0 Red Cell Distribution Width 13.3 Platelet Count 283 Mean Platelet Volume 8.1 Neutrophils (%) (Auto) 74.6 Lymphocytes (%) (Auto) 13.2 Monocytes (%) (Auto) 9.4 Eosinophils (%) (Auto) 2.2 Basophils (%) (Auto) 0.6 Neutrophils # (Auto) 5.7 Lymphocytes # (Auto) 1.0 Monocytes # (Auto) 0.7 Eosinophils # (Auto) 0.2 Basophils # (Auto) 0.0 CBC Comment DIFF FINAL Differential Comment Blood Urea Nitrogen 10 Creatinine 0.68 Random Glucose 128 Total Protein 7.2 Albumin 3.3 Calcium Level 8.3 Alkaline Phosphatase 138 Aspartate Amino Transf (AST/SGOT) 52 Alanine Aminotransferase (ALT/SGPT) 99 Total Bilirubin 0.4 Direct Bilirubin 0.1 Sodium Level 142 Potassium Level 3.6 Chloride Level 110 Carbon Dioxide Level 25.7 Anion Gap 6 Estimat Glomerular Filtration Rate 117 B-Type Natriuretic Peptide 11 Date/Time Source Procedure Growth Status 01/10/18 05:15 Blood Peripheral Aerobic Blood Culture - Preliminary NO GROWTH IN 1 DAY Resulted 01/10/18 05:15 Blood Peripheral Anaerobic Blood Culture - Preliminary NO GROWTH IN 1 DAY Resulted 01/10/18 05:15 Nasal Aspirate Influenza Types A,B Antigen (QUAN) - Final NEGATIVE FOR FLU A AND B ANTIGEN.... Complete Imaging Last Impressions Chest X-Ray 01/10/18 0508 Signed Impressions: Service Date/Time: Wednesday, January 10, 2018 05:24 - CONCLUSION: Bibasilar densities likely atelectasis. Trent Houser MD Liver Ultrasound 01/10/18 0000 Signed Impressions: Service Date/Time: Wednesday, January 10, 2018 09:31 - CONCLUSION: Heterogeneous mild probable hepatic steatosis. Santy Baer MD Physical Exam HEENT: Pupils round and reactive to light; normocephalic; atraumatic; morbid obese NECK: Neck is supple, short, obese CHEST: Chest is clear to auscultation and percussion. CARDIAC: Regular rate and rhythm ABDOMEN: Obese, large, taut, mild distention, mild right upper quadrant tenderness; no hepatosplenomegaly; bowel sounds are present in all four quadrants. EXTREMITIES: No clubbing, cyanosis, or edema. SKIN: Normal; no rash; no jaundice. DONOR SERVICES TECHNICIAN: No focal deficits; alert and oriented times three. (La Marroquin) Assessment and Plan Plan Assessment: - Elevated LFTs- Currently AST-314 ALT-173 Alk phos-177 T bili-0.6 Pt denies history of liver issues. States recent labs by PCP were normal, denies hyperlipidemia and DM States rare ETOH but did have 3-4 beers a day for four days in a row during bike week. Denies history of IV drug use. New medications include: Hydrocodone-Homatropine, Levaquin OTC Mucinex. Denies any Tylenol use or OTC herbs and supplements. Liver US --> Heterogeneous mild probable hepatic steatosis Hepatitis panel negative Family history negative for liver issues Denies acid reflux, heartburn, dysphagia, odynophagia, weight loss. Complaining of RUQ abdominal pain, worse with coughing and movement, states feels like a pulled muscle. - History of gastric bypass with previous cholecystectomy done 5-6 years ago - Pneumonia- Levaquin - Leukocytosis, elevated lactic acid, hx of septic shock Unclear cause for elevated LFTs ?medication vs ?autoimmune , versus fatty liver disease (Pt states he is sick every few weeks requiring abx) Liver ultrasound on 01/10/18 showed probable hepatic steatosis 01/11/18 patient is concerned with cough congestion multiple antibiotics that he has not been able to recover from. Noted right upper quadrant pain after episode of coughing, initially thought it was musculoskeletal, states he is claustrophobic and doesn't know if he can tolerate MRCP. Nurse states he refuses this morning and got upset because he did not get his breakfast. Has agreed to trial repeat test tomorrow a.m. Plan Liver workup in process , currently negative hepatitis panel MRCP in the morning if patient tolerates Monitor LFTs and lab data Avoid hepatotoxins PPI Pepcid Bowel regimen as needed Supportive care Further recommendations based on findings of above Pt has been seen and examined by myself and Dr. Kimbrough and this note is written on his behalf (La Marroquin) Physician Comments Patient seen and examined Agree with above Continue with current supportive care Monitor labs Levaquin has been discontinued LFTs appear to be improving We will continue to monitor but I think at this point most likely to be because of elevated liver function tests his medication We may cancel the MRCP and advance diet (Espinoza Kimbrough MD) La Marroquin Jan 11, 2018 13:54 Espinoza Kimbrough MD Jan 11, 2018 22:47
[2018-01-11] MEDS: SODIUM CHLOR 0.9% 1000 ML INJ 1,000 ML IV SCH ×2 (14:16→20:10)
[2018-01-11] MEDS: RESP: ALBUTEROL 2.5 MG/IPRATROPIUM 0.5 MG NEB (PRN) NEB (15:37)
[2018-01-11 15:45] VITALS: O2SAT 96
[2018-01-11] MEDS ORDERED: HYDROcodone 5 MG/HOMATROPINE 1.5 MG SYRUP 5 ML CUP PO PRN (17:00)
[2018-01-11] MEDS: BENZOCAINE 6 MG/MENTHOL 10 MG LOZENGE BUCCAL PRN ×2 (17:12→20:59)
--- NOTE | 2018-01-11 18:03 | ECHRPT ---
Indication: Heart Failure CONCLUSIONS The left ventricular systolic function is normal with an estimated ejection fraction in the range of 55-60%. Mild concentric left ventricular hypertrophy. Normal left ventricular size. The left atrial size is [id number] dilated. Atrial septal aneurysm is present. Mild mitral valve regurgitation. There is mild tricuspid valve regurgitation. The estimated pulmonary arterial pressure is 33.2 mmHg. BP: 123 / 60 HR: 109 Rhythm: Sinus MEASUREMENTS (Male / Female) Normal Values Technical Quality:Fair 2D ECHO LV Diastolic Diameter PLAX 5.0 cm 4.2 - 5.9 / 3.9 - 5.3 cm LV Systolic Diameter PLAX 3.5 cm IVS Diastolic Thickness 1.3 cm 0.6 - 1.0 / 0.6 - 0.9 cm LVPW Diastolic Thickness 1.3 cm 0.6 - 1.0 / 0.6 - 0.9 cm LV Relative Wall Thickness 0.5 RV Internal Dim ED PLAX 3.8 cm LVOT Diameter 2.4 cm LA Systolic Diameter LX 5.4 cm 3.0 - 4.0 / 2.7 - 3.8 cm M-MODE Aortic Root Diameter MM 2.9 cm LA Systolic Diameter MM 4.3 cm LA Ao Ratio MM 1.5 AV Cusp Separation MM 1.9 cm DOPPLER AV Peak Velocity 179.0 cm/s AV Peak Gradient 12.8 mmHg LVOT Peak Velocity 135.0 cm/s LVOT Peak Gradient 7.3 mmHg AV Area Cont Eq pk 3.4 cm MV Area PHT 5.0 cm Mitral E Point Velocity 99.2 cm/s Mitral A Point Velocity 116.0 cm/s Mitral E to A Ratio 0.9 LV E' Lateral Velocity 10.1 cm/s Mitral E to LV E' Lateral Ratio 9.8 LV E' Septal Velocity 9.2 cm/s Mitral E to LV E' Septal Ratio 10.8 TR Peak Velocity 241.0 cm/s TR Peak Gradient 23.2 mmHg Right Atrial Pressure 10.0 mmHg Pulmonary Artery Systolic Pressu 33.2 mmHg Right Ventricular Systolic Press 33.2 mmHg FINDINGS LEFT VENTRICLE The left ventricular systolic function is normal with an estimated ejection fraction in the range of 55-60%. Mild concentric left ventricular hypertrophy. Normal left ventricular size. RIGHT VENTRICLE Normal right ventricular size and systolic function. LEFT ATRIUM The left atrial size is [id number] dilated. RIGHT ATRIUM The right atrial size is normal. ATRIAL SEPTUM Atrial septal aneurysm is present (benign finding). AORTA The aortic root and proximal ascending aorta are normal in size on limited imaging. MITRAL VALVE Structurally normal mitral valve. Mild mitral valve regurgitation. AORTIC VALVE Trileaflet aortic valve. No aortic valve stenosis or regurgitation. TRICUSPID VALVE Structurally normal tricuspid valve. There is mild tricuspid valve regurgitation. The estimated pulmonary arterial pressure is 33.2 mmHg. PULMONARY VALVE No pulmonary valve regurgitation or stenosis. VESSELS The inferior vena cava is normal in size. PERICARDIUM No pericardial effusion. Angelo Pereira MD, FACC, FSCAI (Electronically Signed) Final Date:11 January 2018 18:02
[2018-01-11 20:00] VITALS: BP 126/65; PULSE 113; RESP 18; TEMP 98.2; O2SAT 91
[2018-01-11] MEDS: LATANOPROST 0.005% OPHT SOLN 2.5 ML BTL EACH EYE SCH ×2 (20:10→20:59)
[2018-01-11] MEDS: TIMOLOL MALEATE 0.5% OPHT SOLN 5 ML BTL LEFT EYE SCH (20:58)
[2018-01-11] MEDS: LATANOPROST 0.005% OPHT SOLN 2.5 ML BTL RIGHT EYE SCH (20:59)
[2018-01-11] MEDS: BRIMONIDINE TARTRATE 0.2% OPHT SOLN 5 ML BTL LEFT EYE SCH (21:17)
[2018-01-11 21:29] LABS: HEMOGLOBIN A1C 6.4 % (4.3-6.0)
[2018-01-11] MEDS: cefTRIAXone INJ 1,000 MG in SODIUM CHLORIDE 0.9% INJ 100 ML IV SCH (23:53)
[2018-01-12] VITALS: BP 125/62; PULSE 112; RESP 18; TEMP 98.8; O2SAT 94
[2018-01-12] MEDS: IBUPROFEN 600 MG TAB PO PRN ×2 (01:30→09:08)
[2018-01-12] MEDS: BENZONATATE 100 MG CAP PO PRN ×2 (05:51→21:05)
[2018-01-12] MEDS: HEPARIN SODIUM - SQ 10,000 UNITS/ML VIAL SQ SCH ×3 (05:51→21:07)
[2018-01-12] MEDS: SODIUM CHLOR 0.9% 1000 ML INJ 1,000 ML IV SCH ×3 (06:16→21:07)
[2018-01-12 07:58] VITALS: O2SAT 92
[2018-01-12 08:00] VITALS: BP 140/78; PULSE 88; RESP 18; TEMP 97.9; O2SAT 94
[2018-01-12] MEDS ORDERED: LORazepam 1 MG TAB PO ONE (08:15)
[2018-01-12] MEDS: LISINOPRIL 5 MG TAB PO SCH (09:00)
[2018-01-12] MEDS: guaiFENesin E.R. 600 MG TAB PO SCH ×2 (09:00→21:04)
[2018-01-12] MEDS: FAMOTIDINE 20 MG TAB PO SCH ×2 (09:00→21:05)
[2018-01-12] MEDS: TIMOLOL MALEATE 0.5% OPHT SOLN 5 ML BTL LEFT EYE SCH ×2 (09:00→21:00)
[2018-01-12] MEDS: THIAMINE HCL 100 MG TAB PO SCH (09:00)
[2018-01-12] MEDS: BRIMONIDINE TARTRATE 0.2% OPHT SOLN 5 ML BTL LEFT EYE SCH ×2 (09:00→21:05)
[2018-01-12] MEDS: SODIUM CHLORIDE 0.9% FLUSH 10 ML FLUSH IV FLUSH SCH ×2 (09:00→21:07)
[2018-01-12] MEDS: DOCUSATE SODIUM 50 MG/SENNA 8.6 MG TAB PO SCH ×2 (09:00→21:05)
[2018-01-12] MEDS: LORATADINE 10 MG TAB PO SCH (09:00)
[2018-01-12] MEDS: BENZOCAINE 6 MG/MENTHOL 10 MG LOZENGE BUCCAL PRN (09:08)
--- NOTE | 2018-01-12 11:41 | HHI.GIFU ---
Subjective Remarks Pt in stretcher, about to go for MRCP. "I don't think I'm going to be able to do it." Says he coughs when he lies down. Had regular dinner yesterday and tolerated. No abd pain. (PaulaAsuncion S CUSTOMER ASSISTANT) Objective Vitals I&O Vital Signs Date Time Temp Pulse Resp B/P (MAP) Pulse Ox O2 Delivery O2 Flow Rate FiO2 01/12/18 08:00 97.9 88 18 140/78 (98) 94 01/12/18 07:58 92 21 01/12/18 00:00 98.8 112 18 125/62 (83) 94 01/11/18 20:00 98.2 113 18 126/65 (85) 91 01/11/18 15:45 96 01/11/18 12:00 97.5 109 18 123/60 (81) 92 I/O 01/11/18 01/11/18 01/11/18 01/12/18 01/12/18 01/12/18 07:00 15:00 23:00 07:00 15:00 23:00 Intake Total 975 ml 820 ml 1030 ml Balance 975 ml 820 ml 1030 ml Intake Oral 0 ml 820 ml 680 ml IV Total 975 ml 350 ml # Voids 3 9 5 # Bowel Movements 0 2 0 Laboratory Date/Time Source Procedure Growth Status 01/10/18 05:15 Blood Peripheral Aerobic Blood Culture - Preliminary NO GROWTH IN 2 DAYS Resulted 01/10/18 05:15 Blood Peripheral Anaerobic Blood Culture - Preliminary NO GROWTH IN 2 DAYS Resulted 01/10/18 05:15 Nasal Aspirate Influenza Types A,B Antigen (QUAN) - Final NEGATIVE FOR FLU A AND B ANTIGEN.... Complete Imaging Last Impressions Chest X-Ray 01/10/18 0508 Signed Impressions: Service Date/Time: Wednesday, January 10, 2018 05:24 - CONCLUSION: Bibasilar densities likely atelectasis. Trent Houser MD Liver Ultrasound 01/10/18 0000 Signed Impressions: Service Date/Time: Wednesday, January 10, 2018 09:31 - CONCLUSION: Heterogeneous mild probable hepatic steatosis. Santy Baer MD Physical Exam HEENT: PERRL; normocephalic; atraumatic CHEST: CTA diminished, respirations shallow CARDIAC: RRR ABDOMEN: obese, nontender, BS +, soft EXTREMITIES: No clubbing, cyanosis, or edema. SKIN: Normal; no rash; no jaundice. 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 (Asuncion Mitchell) Assessment and Plan Plan Assessment: - Elevated LFTs- Currently AST-314 ALT-173 Alk phos-177 T bili-0.6 Pt denies history of liver issues. States recent labs by PCP were normal, denies hyperlipidemia and DM States rare ETOH but did have 3-4 beers a day for four days in a row during bike week. Denies history of IV drug use. New medications include: Hydrocodone-Homatropine, Levaquin OTC Mucinex. Denies any Tylenol use or OTC herbs and supplements. Liver US --> Heterogeneous mild probable hepatic steatosis Hepatitis panel negative Family history negative for liver issues Denies acid reflux, heartburn, dysphagia, odynophagia, weight loss. Complaining of RUQ abdominal pain, worse with coughing and movement, states feels like a pulled muscle. - History of gastric bypass with previous cholecystectomy done 5-6 years ago - Pneumonia- Levaquin - Leukocytosis, elevated lactic acid, hx of septic shock Unclear cause for elevated LFTs ?medication vs ?autoimmune , versus fatty liver disease (Pt states he is sick every few weeks requiring abx) Liver ultrasound on 01/10/18 showed probable hepatic steatosis 01/11/18 patient is concerned with cough congestion multiple antibiotics that he has not been able to recover from. Noted right upper quadrant pain after episode of coughing, initially thought it was musculoskeletal, states he is claustrophobic and doesn't know if he can tolerate MRCP. Nurse states he refuses this morning and got upset because he did not get his breakfast. Has agreed to trial repeat test tomorrow a.m. 01/12/18 going for MRCP but still c/o coughing when lays down. Just notified by RN he refused MRCP today had ECHO relatively unremarkable. Liver w/u pending. tolerated diet yesterday. could be fatty liver. Plan await liver w/u refused MRCP heart healthy diet Monitor Labs Supportive care rck LFTs pt seen by myself and Dr Kimbrough and this note is on his behalf (Asuncion Mitchell) Physician Comments Seen and examined Agree with above Continue with current supportive care Monitor labs (Espinoza Kimbrough MD) Asuncion Mitchell Jan 12, 2018 11:41 Espinoza Kimbrough MD Jan 12, 2018 21:51
[2018-01-12 12:12] LABS: ALPHA-1-ANTITRYPSIN 172 mg/dL (100 - 190)
[2018-01-12 15:26] LABS: SMOOTH MUSCLE TOTAL AUTOABS Negative (Negative)
[2018-01-12 16:00] VITALS: BP 180/55; PULSE 93; RESP 18; TEMP 97.9; O2SAT 93
--- NOTE | 2018-01-12 16:56 | HHI.PR ---
Subjective Remarks Nursing denies any deterioration since last night. Patient says his pain is much better since admission. He says he still gets very short of breath just lying down flat and says he will try MRCP. However after reviewing GI progress notes he apparently refused it because his symptoms are still a problem. Objective Vital Signs Date Time Temp Pulse Resp B/P (MAP) Pulse Ox O2 Delivery O2 Flow Rate FiO2 01/12/18 16:00 97.9 93 18 180/55 (96) 93 01/12/18 08:00 97.9 88 18 140/78 (98) 94 01/12/18 07:58 92 21 01/12/18 00:00 98.8 112 18 125/62 (83) 94 01/11/18 20:00 98.2 113 18 126/65 (85) 91 I/O 01/11/18 01/11/18 01/11/18 01/12/18 01/12/18 01/12/18 07:00 15:00 23:00 07:00 15:00 23:00 Intake Total 975 ml 820 ml 1030 ml Balance 975 ml 820 ml 1030 ml Intake Oral 0 ml 820 ml 680 ml IV Total 975 ml 350 ml # Voids 3 9 5 # Bowel Movements 0 2 0 Result Diagram: 01/11/18 1028 01/11/18 1028 Objective Remarks No abdominal tenderness palpation, abdomen is otherwise obese, soft, nondistended Lungs are clear bilaterally, no lower extremity edema is noted Looking out the window in a standing position A/P Assessment and Plan 67-year-old male with past medical history significant for hypertension, bariatric surgery, glaucoma and history of septic shock secondary to pneumonia that occurred 2 years ago who presents to [facility] ED with complaints cough with yellowish/greenish sputum production, diffuse muscle aches and pain, low grade fever, increased fatigue and right upper quadrant pain ongoing since Tuesday. Sepsis secondary to pneumonia -Sepsis element resolved. Blood cultures are pending Pneumonia -Continue Rocephin and azithromycin as opposed to Levaquin to help minimize transaminitis as a possible side effect from the -Duonebs -Mucinex -IS and acapella orthopnea -Most likely due to pickwickian syndrome, EF is preserved on echocardiogram //Transaminitis -Improving LFTs, repeat in a.m. //Right upper quadrant pain -Improved since admission, GI following, viral hepatitis panel is neg, autoimmune panel is still pending. May be a candidate for discharge in a.m. //Hypertension, chronic, controlled -lisinopril //Glaucoma -home eyedrops //Hyperglycemia -No reported history of diabetes per patient -BS 166 -a1c pending //Hx of bariatric surgery -continue on Thiamine //DVT prophylaxis -bilateral SCD/DORITA Sukh Barrios MD Jan 12, 2018 16:56
[2018-01-12] MEDS ORDERED: PROMETHAZINE/CODEINE 6.25 MG/10 MG/5 ML CUP PO PRN (17:00)
[2018-01-12 20:00] VITALS: BP 155/84; PULSE 94; RESP 20; TEMP 98.6; O2SAT 92
[2018-01-12] MEDS ORDERED: NAPROXEN 500 MG TAB PO ONE (20:00)
[2018-01-12] MEDS: LATANOPROST 0.005% OPHT SOLN 2.5 ML BTL RIGHT EYE SCH (21:00)
[2018-01-12] MEDS: RESP: ALBUTEROL 2.5 MG/IPRATROPIUM 0.5 MG NEB (PRN) NEB (21:40)
[2018-01-12 21:41] VITALS: O2SAT 95
[2018-01-12] MEDS: AZITHROMYCIN INJ 500 MG in SODIUM CHLOR 0.9% 250 ML INJ 250 ML IV SCH (23:38)
[2018-01-12] MEDS: cefTRIAXone INJ 1,000 MG in SODIUM CHLORIDE 0.9% INJ 100 ML IV SCH (23:38)
[2018-01-13] VITALS: BP 122/56; PULSE 90; RESP 18; TEMP 97.9; O2SAT 90
[2018-01-13] MEDS: HEPARIN SODIUM - SQ 10,000 UNITS/ML VIAL SQ SCH (04:17)
[2018-01-13] MEDS: SODIUM CHLOR 0.9% 1000 ML INJ 1,000 ML IV SCH (04:17)
[2018-01-13] MEDS: BRIMONIDINE TARTRATE 0.2% OPHT SOLN 5 ML BTL LEFT EYE SCH (07:53)
[2018-01-13] MEDS: DOCUSATE SODIUM 50 MG/SENNA 8.6 MG TAB PO SCH (07:54)
[2018-01-13] MEDS: FAMOTIDINE 20 MG TAB PO SCH (07:54)
[2018-01-13] MEDS: LORATADINE 10 MG TAB PO SCH (07:54)
[2018-01-13] MEDS: THIAMINE HCL 100 MG TAB PO SCH (07:54)
[2018-01-13] MEDS: TIMOLOL MALEATE 0.5% OPHT SOLN 5 ML BTL LEFT EYE SCH (07:54)
[2018-01-13] MEDS: LISINOPRIL 5 MG TAB PO SCH (07:54)
[2018-01-13] MEDS: SODIUM CHLORIDE 0.9% FLUSH 10 ML FLUSH IV FLUSH SCH (07:55)
[2018-01-13] MEDS: guaiFENesin E.R. 600 MG TAB PO SCH (07:55)
[2018-01-13 08:00] VITALS: BP 125/70; PULSE 78; RESP 19; TEMP 97.7; O2SAT 90
[2018-01-13 08:30] LABS: TOTAL BILIRUBIN ADULT 0.1 MG/DL (0.2-1.0); TOTAL PROTEIN 6.9 GM/DL (6.4-8.2)
[2018-01-13 08:35] LABS: ALBUMIN 3.1 GM/DL (3.4-5.0); DIRECT BILIRUBIN ADULT 0.1 MG/DL (0.0-0.2)
[2018-01-13 08:55] VITALS: O2SAT 93
--- NOTE | 2018-01-13 11:20 | HHI.GIFU ---
Subjective Remarks Sitting up in the chair No further abdominal pain ,feeling much better Discussing with attending physician planned home discharge today Afebrile ([place]) Objective Vitals I&O Vital Signs Date Time Temp Pulse Resp B/P (MAP) Pulse Ox O2 Delivery O2 Flow Rate FiO2 01/13/18 08:00 97.7 78 19 125/70 (88) 90 01/13/18 00:00 97.9 90 18 122/56 (78) 90 01/12/18 21:41 95 21 01/12/18 20:00 98.6 94 20 155/84 (107) 92 01/12/18 16:00 97.9 93 18 180/55 (96) 93 I/O 01/12/18 01/12/18 01/12/18 01/13/18 01/13/18 01/13/18 07:00 15:00 23:00 07:00 15:00 23:00 Intake Total 1030 ml 480 ml 350 ml Balance 1030 ml 480 ml 350 ml Intake Oral 680 ml 480 ml IV Total 350 ml 350 ml # Voids 5 9 # Bowel Movements 0 Laboratory Laboratory Tests Test 01/13/18 06:51 Total Bilirubin 0.1 Direct Bilirubin 0.1 Indirect Bilirubin 0.0 Aspartate Amino Transf (AST/SGOT) 29 Alanine Aminotransferase (ALT/SGPT) 64 Alkaline Phosphatase 135 Total Protein 6.9 Albumin 3.1 Date/Time Source Procedure Growth Status 01/10/18 05:15 Blood Peripheral Aerobic Blood Culture - Preliminary NO GROWTH IN 3 DAYS Resulted 01/10/18 05:15 Blood Peripheral Anaerobic Blood Culture - Preliminary NO GROWTH IN 3 DAYS Resulted 01/10/18 05:15 Nasal Aspirate Influenza Types A,B Antigen (QUAN) - Final NEGATIVE FOR FLU A AND B ANTIGEN.... Complete Imaging Last Impressions Chest X-Ray 01/10/18 0508 Signed Impressions: Service Date/Time: Wednesday, January 10, 2018 05:24 - CONCLUSION: Bibasilar densities likely atelectasis. Trent Houser MD Liver Ultrasound 01/10/18 0000 Signed Impressions: Service Date/Time: Wednesday, January 10, 2018 09:31 - CONCLUSION: Heterogeneous mild probable hepatic steatosis. Santy Baer MD Physical Exam HEENT: PERRL; normocephalic; atraumatic oral cavity and this membranes pink CHEST: Diminished breath sounds in bases lung volumes normal for patient's habitus CARDIAC: Regular rate and rhythm ABDOMEN: Morbid obese, nontender, BS +, soft EXTREMITIES: No clubbing, cyanosis, or edema. 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 ([place] Mar[place]quin) Assessment and Plan Plan Assessment: - Elevated LFTs- Currently AST-314 ALT-173 Alk phos-177 T bili-0.6 Pt denies history of liver issues. States recent labs by PCP were normal, denies hyperlipidemia and DM States rare ETOH but did have 3-4 beers a day for four days in a row during bike week. Denies history of IV drug use. New medications include: Hydrocodone-Homatropine, Levaquin OTC Mucinex. Denies any Tylenol use or OTC herbs and supplements. Liver US --> Heterogeneous mild probable hepatic steatosis Hepatitis panel negative Family history negative for liver issues Denies acid reflux, heartburn, dysphagia, odynophagia, weight loss. Complaining of RUQ abdominal pain, worse with coughing and movement, states feels like a pulled muscle. - History of gastric bypass with previous cholecystectomy done 5-6 years ago - Pneumonia- Levaquin - Leukocytosis, elevated lactic acid, hx of septic shock Unclear cause for elevated LFTs ?medication vs ?autoimmune , versus fatty liver disease (Pt states he is sick every few weeks requiring abx) Liver ultrasound on 01/10/18 showed probable hepatic steatosis 01/11/18 patient is concerned with cough congestion multiple antibiotics that he has not been able to recover from. Noted right upper quadrant pain after episode of coughing, initially thought it was musculoskeletal, states he is claustrophobic and doesn't know if he can tolerate MRCP. Nurse states he refuses this morning and got upset because he did not get his breakfast. Has agreed to trial repeat test tomorrow a.m. 01/12/18 going for MRCP but still c/o coughing when lays down. Just notified by RN he refused MRCP today had ECHO relatively unremarkable. Liver w/u pending. tolerated diet yesterday. could be fatty liver. 01/13/18 , LFTs back to normal range 29/64.lab Anti-smooth muscle negative, IVETTE pending. Patient is feeling much better abdominal pain resolved. Plan per attending is for discharge. Discussed with patient diet regimen and modifications including low fat heart healthy with vegetables and fruit, calorie count low-fat. Patient states he has been moving and eating out a lot but plans to try to do better after discharge. Plan heart healthy diet, discussed options with patient for discharge Monitor Labs, gave patient the information for follow-up with advanced GI when out of the hospital. Patient also has a new PCP that he is going to start following with Supportive care, Spoke with attending, Possible DC Hemoglobin stable at 13.4 no obvious bleeding. Okay to DC from GI standpoint pt seen by myself and Dr Kimbrough and this note is on his behalf ([place] Marroquin) Physician Comments Patient seen and examined Agree with above Continue with current supportive care Monitor labs (Espinoza Kimbrough MD) [place] Jan 13, 2018 11:20 Espinoza Kimbrough MD Jan 13, 2018 23:49
[2018-01-13] MEDS ORDERED: CEFD300C PO (11:48)
[2018-01-13] MEDS ORDERED: AZIT500T2 PO (11:48)
--- NOTE | 2018-01-13 11:49 | HHI.DCPOC ---
Discharge Care Plan Diagnosis: (1) Pneumonia (2) Hepatitis Goals to Promote Your Health * To prevent worsening of your condition and complications * To maintain your health at the optimal level Directions to Meet Your Goals Take your medications as prescribed Follow your dietary instruction Follow activity as directed Keep your appointments as scheduled Take your immunizations and boosters as scheduled If your symptoms worsen call your PCP, if no PCP go to Urgent Care Center or Emergency Room Smoking is Dangerous to Your Health. Avoid second hand smoke Call the 24-hour hour crisis hotline for domestic abuse at Sukh Ryder MD Jan 13, 2018 11:49
--- NOTE | 2018-01-13 11:51 | HHI.DS ---
Discharge Summary Admission Date Jan 10, 2018 at 06:29 Discharge Date: Jan 13, 2018 Admitting Diagnosis Febrile illness, sirs, lactic acidosis, probable pneumonia (1) Community acquired bacterial pneumonia ICD Code: J15.9 - Unspecified bacterial pneumonia (2) Pneumonia ICD Code: J18.9 - Pneumonia, unspecified organism (3) Hepatitis ICD Code: K75.9 - Inflammatory liver disease, unspecified Procedures none Brief History - From Admission Written by Marge Klein, acting as scribe for Dr. Medrano on 01/10/18 at 15: 52. This is a 67-year-old male with past medical history significant for hypertension, bariatric surgery, glaucoma and history of septic shock secondary to pneumonia that occurred 2 years ago who presents to [facility] ED with complaints cough with yellowish/greenish sputum production, diffuse muscle aches and pain, low grade fever, increased fatigue and right upper quadrant pain ongoing since Tuesday. Patient states his temperature at the house was 99 . Patient states he recently moved to the area from [place] and has been doing a lot of heavy lifting, moving and packing boxes. He states on Tuesday when he began to develop symptoms he started taking Mucinex. He describes a sensation of "lungs closing up". He continued to feel badly and on Tuesday he contacted his previous physician in [place] and was called in Levaquin of which he has taken 2 days of. He also went to see an urgent care on Tuesday which prescribed Levaquin which he did not fill. He denies any complaints of chest pain. He denies any nausea or vomiting. He does endorse significant right upper quadrant pain that has been ongoing since Tuesday and he states is exacerbated by cough. He denies any complaints of dysuria, hematuria , diarrhea, hematochezia or melena. He takes Motrin for osteoarthritic pain but denies taking any Tylenol. Patient states he has been off and on antibiotics every few weeks for the past several years. He states he has been told that he might have asthma. CBC/BMP: 01/11/18 1028 01/11/18 1028 Significant Findings Laboratory Tests Test 01/11/18 10:28 01/13/18 06:51 Red Blood Count 4.21 MIL/MM3 (4.50-5.90) Neutrophils (%) (Auto) 74.6 % (16.0-70.0) Monocytes (%) (Auto) 9.4 % (0.0-8.0) Random Glucose 128 MG/DL (74-106) Albumin 3.3 GM/DL (3.4-5.0) 3.1 GM/DL (3.4-5.0) Calcium Level 8.3 MG/DL (8.5-10.1) Alkaline Phosphatase 138 U/L (45-117) 135 U/L (45-117) Aspartate Amino Transf (AST/SGOT) 52 U/L (15-37) Alanine Aminotransferase (ALT/SGPT) 99 U/L (12-78) Chloride Level 110 MEQ/L (98-107) Total Bilirubin 0.1 MG/DL (0.2-1.0) PE at Discharge No emmanuelle appreciable tenderness to palpation over abdomen including right upper quadrant, obese abdomen otherwise, lungs are clear bilaterally, unlabored breathing, no cyanosis Hospital Course Patient was admitted, started on IV antibiotics, IV fluids. GI was consulted, recommended to avoid Levaquin exposure for the time being given his hepatitis. Autoimmune workup through serology was initiated. Patient attempted to undergo MRCP twice but was unable to lie flat secondary to his significant orthopnea secondary to his pickwickian syndrome. He remained afebrile and his blood cultures remain negative. His LFTs normalized and his pain minimize. He is clear to discharge from GI standpoint. Patient has met maximal benefit from hospitalization is clinically stable for discharge. Patient was counseled to minimize any usage of Tylenol. Pt Condition on Discharge: Stable Discharge Disposition: Discharge Home Discharge Time: <= 30 minutes Discharge Instructions Follow up Referrals: Gastroenterology - 2 Weeks with Espinoza Kimbrough MD PCP Follow-up - 1 Week New Medications: Azithromycin (Azithromycin) 500 Mg Tab 500 MG PO DAILY for Infection, #2 TAB 0 Refills Cefdinir (Cefdinir) 300 Mg Cap 600 MG PO DAILY for Infection, #8 CAP 0 Refills Continued Medications: Brimonidine-Timolol Opth Drops (Combigan Opth Drops) 0.2-0.5% Soln 1 DROP LEFT EYE Q12HR for Glaucoma, BOTTLE 0 Refills Guaifenesin (Mucinex) 1,200 Mg Tab.er.12h Hydrocodone-Homatropine Liq (Hydrocodone-Homatropine Liq) 5-1.5 Mg/5 Ml Syrp 5 ML PO Q6H PRN for COUGH, ML 0 Refills Latanoprost Opth Drops (Latanoprost Opth Drops) 0.005% Drops 1 DROP RIGHT EYE HS for Glaucoma, #2.5 ML 0 Refills Refrigerate until opened. Lisinopril (Lisinopril) 2.5 Mg Tab 2.5 MG PO DAILY, #30 TAB 0 Refills Loratadine (Claritin) 10 Mg Cap 10 MG PO DAILY for Allergy Management, CAP 0 Refills Sukh Ryder MD Jan 13, 2018 11:50
[2018-01-13 12:00] VITALS: BP 157/81; PULSE 88; RESP 19; TEMP 98.2; O2SAT 92
[2018-01-14 15:52] LABS: CERULOPLASMIN 28 mg/dL (18-36)
[2018-01-16 03:50] LABS: MITOCHONDRIAL ABS LESS THAN 20.0 U (<=20.0)
== END 2018-01-13 12:53 | disposition home or self-care (01) | DRG 194 ==
LOC: NEPC 04:45 → NEDA 06:18 → OBSVTOIN 06:29 → N07B 13:51
PROVIDERS: ADMIT Hospitalist; ATTEND Hospitalist
DX: J15.9 Unspecified bacterial pneumonia (principal); E87.2 Acidosis; E66.2 Morbid (severe) obesity with alveolar hypoventilation; Z68.41 Body mass index [BMI] 40.0-44.9, adult; K75.9 Inflammatory liver disease, unspecified; I10 Essential (primary) hypertension; R07.89 Other chest pain; R73.9 Hyperglycemia, unspecified; R74.0 Nonspecific elevation of levels of transaminase and lactic acid dehydrogenase [LDH]; H40.9 Unspecified glaucoma; R10.11 Right upper quadrant pain; M19.90 Unspecified osteoarthritis, unspecified site; Z98.84 Bariatric surgery status; Z90.49 Acquired absence of other specified parts of digestive tract
CPT/HCPCS: 71045; 76705; 80053; 80074; 80076; 81001; 82103; 82248; 82390; 82550; 82728; 83036; 83520; 83540; 83550; 83605; 83880; 84484; 85025; 86038; 86255; 87040; 87804; 93005; 93306; 94150; 94640; 94664; 94667; 94668; 96360; J0456; J0696; J1644; J1956; J7030; J7050

== ENCOUNTER 2018-01-15 18:24 | Emergency (ER) | payer MEDICARE ==
[~2018-01-15] VITALS: Ht 172.7 cm; Wt 120.0 kg
[~2018-01-15 18:24] MED LIST: AZIT500T2 PO; CEFD300C PO; CLAR10CA3 PO; COMB0.2S LEFT EYE; GUAI1TAB18; HYDR5SYP10 PO; LATA0.002 RIGHT EYE; LISI2.5T3 PO
[2018-01-15 18:28] VITALS: BP 174/84; PULSE 88; RESP 24; TEMP 97.7; O2SAT 92
[2018-01-15] MEDS ORDERED: LEVO500T8 PO (19:14)
[2018-01-15] MEDS ORDERED: IBUP1TAB7 PO (19:14)
[2018-01-15 19:16] VITALS: PULSE 90; O2SAT 94
--- NOTE | 2018-01-15 19:39 | PD ---
HPI Chief Complaint: Respiratory Distress Time Seen by Provider: 19:17 Travel History International Travel<30 days: No Contact w/Intl Traveler<30days: No Traveled to known affect area: No History of Present Illness HPI Patient comes emergency department complaining of shortness of breath 1 episode after waking from sleep. Patient states that he just got hospital after being diagnosed with pneumonia has been taking his antibiotics as prescribed however this afternoon he took a nap when he awoke he felt short of breath that improved after he coughed up phlegm and blew his nose. Patient reports that he has an appointment with his primary care doctor tomorrow but was concerned secondary to the episode of shortness of breath. Patient denies any making it worse or symptoms since. Patient reports a history of sleep apnea but does not use his CPAP. Denies any fevers, chest pain, nausea, vomiting or diarrhea, abdominal pain, headache, neck pain, or other concerns. Severity mild. Patient reports he is feeling much better currently wanting to know how long his evaluation will take and if he will be able to go home soon. PFSH Past Medical History Arthritis: Yes Cancer: No Cardiac Catheterization: Yes Cardiovascular Problems: No Endocrine: No Glaucoma: Yes Genitourinary: No Immune Disorder: No Musculoskeletal: Yes Neurologic: No Psychiatric: No Reproductive: No Respiratory: No Past Surgical History Abdominal Surgery: Yes (BARIATRIC) Cholecystectomy: Yes Tonsillectomy: Yes (ADENOIDS ) Social History Alcohol Use: No Tobacco Use: No Substance Use: No Allergies-Medications (Allergen,Severity, Reaction): Coded Allergies: No Known Allergies (Unverified , 01/15/18) Reported Meds & Prescriptions Reported Meds & Active Scripts Active Cefdinir 300 Mg Cap 600 Mg PO DAILY Reported Levofloxacin 500 Mg Tablet 500 Mg PO DAILY Ibuprofen 800 Mg Tab 800 Mg PO Q8H PRN Latanoprost Opth Drops (Latanoprost) 0.005% Drops 1 Drop RIGHT EYE HS Refrigerate until opened. Combigan Opth Drops (Brimonidine-Timolol Opth Drops) 0.2-0.5% Soln 1 Drop LEFT EYE Q12HR Lisinopril 2.5 Mg Tab 2.5 Mg PO DAILY Claritin (Loratadine) 10 Mg Cap 10 Mg PO DAILY Review of Systems Except as stated in HPI: all other systems reviewed are Neg Physical Exam Narrative GENERAL: Well-developed, overly nourished, in no acute distress, and non-ill appearing. SKIN: Focused skin assessment warm and dry. HEAD: Atraumatic. Normocephalic. EYES: Pupils equal and round. EOMI. No scleral icterus. No injection or drainage. ENT: No nasal bleeding or discharge. Mucous membranes pink and moist. NECK: Trachea midline. Supple. No nuclear rigidity. CARDIOVASCULAR: Regular rate and rhythm. No murmur appreciated. RESPIRATORY: No accessory muscle use. No respiratory distress. Clear to auscultation. Breath sounds equal bilaterally. No coughing noted on exam. Patient speaking full sentences without difficulty. MUSCULOSKELETAL: No obvious deformities. No clubbing. No cyanosis. No edema. Full range of motion. NEUROLOGICAL: Awake and alert. No obvious cranial nerve deficits. Motor grossly within normal limits. Normal speech. PSYCHIATRIC: Appropriate mood and affect; insight and judgment normal. Data Data Last Documented VS Vital Signs Date Time Temp Pulse Resp B/P (MAP) Pulse Ox O2 Delivery O2 Flow Rate FiO2 01/15/18 20:20 Room Air 01/15/18 19:16 90 94 01/15/18 18:28 97.7 24 174/84 (114) Orders Orders Complete Blood Count With Diff (01/15/18 19:35) Basic Metabolic Panel (Bmp) (01/15/18 19:35) Iv Access Insert/Monitor (01/15/18 19:35) Ecg Monitoring (01/15/18 19:35) Oximetry (01/15/18 19:35) Oxygen Administration (01/15/18 19:35) Chest, Single Ap (01/15/18 19:35) Sodium Chloride 0.9% Flush (Ns Flush) (01/15/18 19:45) Ed Discharge Order (01/15/18 20:27) Labs Laboratory Tests Test 01/15/18 19:40 White Blood Count 5.3 TH/MM3 Red Blood Count 4.82 MIL/MM3 Hemoglobin 15.0 GM/DL Hematocrit 45.6 % Mean Corpuscular Volume 94.5 FL Mean Corpuscular Hemoglobin 31.1 PG Mean Corpuscular Hemoglobin Concent 32.9 % Red Cell Distribution Width 13.2 % Platelet Count 169 TH/MM3 Mean Platelet Volume 8.5 FL Neutrophils (%) (Auto) 55.8 % Lymphocytes (%) (Auto) 32.4 % Monocytes (%) (Auto) 7.5 % Eosinophils (%) (Auto) 3.5 % Basophils (%) (Auto) 0.8 % Neutrophils # (Auto) 3.0 TH/MM3 Lymphocytes # (Auto) 1.7 TH/MM3 Monocytes # (Auto) 0.4 TH/MM3 Eosinophils # (Auto) 0.2 TH/MM3 Basophils # (Auto) 0.0 TH/MM3 CBC Comment DIFF FINAL Differential Comment Blood Urea Nitrogen 14 MG/DL Creatinine 0.76 MG/DL Random Glucose 122 MG/DL Calcium Level 8.5 MG/DL Sodium Level 139 MEQ/L Potassium Level 4.6 MEQ/L Chloride Level 107 MEQ/L Carbon Dioxide Level 25.6 MEQ/L Anion Gap 6 MEQ/L Estimat Glomerular Filtration Rate 103 ML/MIN MDM Medical Decision Making Medical Screen Exam Complete: Yes Emergency Medical Condition: Yes Interpretation(s) Last Impressions Chest X-Ray 01/15/181934 Signed Impressions: Service Date/Time: Monday, January 15, 2018 19:40 - CONCLUSION: No significant change has occurred. Wolfgang Dean MD Differential Diagnosis Pneumonia, failed outpatient therapy, dyspnea, cough, mucous plug, congestion Narrative Course The patient is non-ill appearing and is in no respiratory distress and comfortable. The patient moves air well and oxygen saturations are normal. There is no clinical evidence to suggest pneumonia at this time. Plan of care and management were discussed with the patient who agreed with plan. The patient was instructed to follow up with their physician and instructed to return if worsens, progressively worsening shortness of breath or difficulty breathing, persistent fever, chest pains or discomfort, inability to keep medication or fluids down with or without vomiting, or as needed. Patient in no obvious distress upon re-evaluation. All pertinent laboratory/ Radiology result(s) discussed with patient. Discussed patient with Dr. Diallo prior to discharge, who is in agreement plan of care and disposition. Any questions/concerns in reference to patient diagnosis/condition discussed and clarified prior to patient's discharge. Reinforced sheer importance of close follow up with patient's primary physician or primary care clinic. Instructed patient to return to ED immediately, if symptoms return/worsen. Patient showed understanding of above instructions. Further instructions and recommendations were detailed in discharge paperwork. Patient ambulated without difficulty out of ED at discharge. Diagnosis Primary Impression: SOB (shortness of breath) Patient Instructions: Dyspnea (ED), General Instructions Additional Instructions: Follow-up with your primary care physician tomorrow as scheduled. Return to the emergency department if symptoms get worse. Disposition: 01 DISCHARGE HOME Condition: Stable [place] Jan 15, 2018 19:39
[2018-01-15] MEDS ORDERED: SODIUM CHLORIDE 0.9% FLUSH 10 ML FLUSH IVF PRN (19:45)
[2018-01-15 19:55] LABS: BASOPHIL % 0.8 % (0.0-2.0); EOSINOPHIL # 0.2 TH/MM3 (0-0.4); EOSINOPHIL % 3.5 % (0.0-4.0); HEMATOCRIT 45.6 % (39.0-51.0); LYMPH % 32.4 % (9.0-44.0); LYMPHOCYTE # 1.7 TH/MM3 (1.0-4.8); MEAN CELL VOLUME 94.5 FL (80.0-100.0); MEAN CORPUSCULAR HEMOGLOBIN 31.1 PG (27.0-34.0); MEAN CORPUSCULAR HGB CONC 32.9 % (32.0-36.0); MEAN PLATELET VOLUME 8.5 FL (7.0-11.0); MONO % 7.5 % (0.0-8.0); MONOCYTE # 0.4 TH/MM3 (0-0.9); NEUT % 55.8 % (16.0-70.0); PLATELET COUNT 169 TH/MM3 (150-450); RED BLOOD COUNT 4.82 MIL/MM3 (4.50-5.90); RED CELL DISTRIBUTION WIDTH 13.2 % (11.6-17.2); WHITE BLOOD COUNT 5.3 TH/MM3 (4.0-11.0)
--- NOTE | 2018-01-15 19:58 | RADRPT ---
EXAM DATE/TIME: 01/15/2018 19:40 [facility] COMPARISON: CHEST SINGLE AP, January 10, 2018, 5:24. INDICATIONS : Shortness of breath. MEDICAL HISTORY : Arthritis. SURGICAL HISTORY : Tonsillectomy. Cholecystectomy. ENCOUNTER: Initial ACUITY: 1 day PAIN SCORE: 0/10 LOCATION: Bilateral chest FINDINGS: The lung volumes are diminished. Mild elevation of the right hemidiaphragm. Basilar atelectasis is se en Heart size normal. Osseous structures are intact. CONCLUSION: No significant change has occurred. Wolfgang Dean MD on January 15, 2018 at 19:56 Board Certified Radiologist. This report was verified electronically.
[2018-01-15 20:21] LABS: BICARBONATE 25.6 MEQ/L (21.0-32.0); CALCIUM 8.5 MG/DL (8.5-10.1); CREATININE 0.76 MG/DL (0.60-1.30)
== END 2018-01-15 20:47 | disposition home or self-care (01) ==
LOC: NEPE 18:24
DX: R06.02 Shortness of breath (principal); M19.90 Unspecified osteoarthritis, unspecified site; H40.9 Unspecified glaucoma; Z79.899 Other long term (current) drug therapy
CPT/HCPCS: 71045; 80048; 85025; 99284